=== PATIENT | female | born 1940 | race Two or more races ===

== ENCOUNTER 2017-11-26 12:57 | Emergency (ER) | payer OTHER ==
[~2017-11-26] VITALS: Ht 149.9 cm; Wt 56.7 kg
[~2017-11-26 12:57] MED LIST: CLONAZEPAM1 MG PO; CRESTOR10 MG PO; FOLIC ACID1 MG PO; GABAPENTIN100 MG PO; JANUVIA25 MG PO; LOSARTAN-HCTZ1 EACH PO; METFORMIN HCL500 M2 PO; SYNTHROID50 MCG PO
[2017-11-26] MEDS ORDERED: GLIMEPIRIDE4 MG (13:08)
[2017-11-26] MEDS ORDERED: GLIMEPIRIDE2 MG (13:22)
== END 2017-11-26 20:13 | disposition home or self-care (01) ==
LOC: ER 12:57 → CPU-OBS 13:32 → ER 20:13
DX: R07.89 Other chest pain (principal)

== ENCOUNTER 2018-10-19 12:34 | Outpatient (CLI) | payer OTHER ==
[~2018-10-19 12:34] MED LIST changes: +GLIMEPIRIDE2 MG; +GLIMEPIRIDE4 MG
== END 2018-10-19 14:01 | disposition home or self-care (01) ==
LOC: RAD 12:34
DX: J44.1 Chronic obstructive pulmonary disease with (acute) exacerbation (principal)

== ENCOUNTER → 2019-04-12 | Outpatient (CLI) | payer OTHER | END | disposition home or self-care (01) | LOC: MAMO-SONO 09:48 | DX: Z12.39 Encounter for other screening for malignant neoplasm of breast (principal); N64.4 Mastodynia; Z12.31 Encounter for screening mammogram for malignant neoplasm of breast ==

== ENCOUNTER 2020-04-29 09:22 | Outpatient (CLI) | payer OTHER | END 2020-04-29 09:28 | disposition home or self-care (01) | LOC: LAB 09:22 | PROVIDERS: ATTEND Internal Medicine Cardiovascular Disease | DX: E03.8 Other specified hypothyroidism (principal); D64.89 Other specified anemias; R10.84 Generalized abdominal pain; E78.49 Other hyperlipidemia; Z13.6 Encounter for screening for cardiovascular disorders; I12.9 Hypertensive chronic kidney disease with stage 1 through stage 4 chronic kidney disease, or unspecified chronic kidney disease; E11.65 Type 2 diabetes mellitus with hyperglycemia; C73 Malignant neoplasm of thyroid gland ==

== ENCOUNTER 2020-06-05 09:04 | Outpatient (CLI) | payer OTHER | END 2020-06-05 09:15 | disposition home or self-care (01) | LOC: RAD 09:04 → MAMO-SONO 09:15 → RAD 09:15 | PROVIDERS: ATTEND Obstetrics & Gynecology | DX: M48.02 Spinal stenosis, cervical region (principal); Z12.31 Encounter for screening mammogram for malignant neoplasm of breast; N60.11 Diffuse cystic mastopathy of right breast; N60.12 Diffuse cystic mastopathy of left breast ==

== ENCOUNTER 2021-02-05 09:57 | Outpatient (CLI) | payer OTHER | END 2021-02-05 10:07 | disposition home or self-care (01) | LOC: SONOGRAMA 09:57 → MAMO-SONO 10:15 | PROVIDERS: ATTEND Specialist/Technologist, Other Nephrology | DX: R10.84 Generalized abdominal pain (principal); R31.29 Other microscopic hematuria ==

== ENCOUNTER 2021-06-28 19:30 | Emergency (ER) | payer OTHER ==
[~2021-06-28] VITALS: Ht 149.9 cm; Wt 57.2 kg
[2021-06-28] MEDS ORDERED: MINOCYCLINE HC100 M1 (19:59)
== END 2021-06-28 21:42 | disposition home or self-care (01) ==
LOC: ER 19:30
DX: R60.0 Localized edema (principal); T78.40XA Allergy, unspecified, initial encounter; X58.XXXA Exposure to other specified factors, initial encounter

== ENCOUNTER 2022-07-29 07:16 | Outpatient (CLI) | payer OTHER ==
[~2022-07-29 07:16] MED LIST changes: +MINOCYCLINE HC100 M1
== END 2022-07-29 15:29 | disposition home or self-care (01) ==
LOC: SONOGRAMA 07:16
PROVIDERS: ATTEND Obstetrics & Gynecology
DX: R10.2 Pelvic and perineal pain (principal)

== ENCOUNTER → 2022-07-29 07:19 | Outpatient (CLI) | payer OTHER | END | disposition home or self-care (01) | LOC: LAB 07:19 | PROVIDERS: ATTEND Obstetrics & Gynecology | DX: N30.00 Acute cystitis without hematuria (principal) ==

== ENCOUNTER 2023-03-07 10:20 | Outpatient (CLI) | payer OTHER | END 2023-03-07 10:31 | disposition home or self-care (01) | LOC: SONOGRAMA 10:20 | PROVIDERS: ATTEND Internal Medicine Endocrinology, Diabetes & Metabolism | DX: E04.8 Other specified nontoxic goiter (principal) ==

== ENCOUNTER → 2023-04-28 08:59 | Outpatient (CLI) | payer OTHER ==
[2023-04-28 10:13] LABS: HEMATOCRIT 32.4 % (36.0-45.00); HEMOGLOBIN 10.6 g/dL (12.0-15.00); MEAN CELL VOLUME 95.6 fL (80.00-100.00); MEAN CORPUSCULAR HEMOGLOBIN 31.2 pg (27.00-32.0); MEAN CORPUSCULAR HGB CONC 32.7 g/dl (32.0-36.0); PLATELET COUNT 322 K/uL (150-450); RED BLOOD COUNT 3.39 M/uL (4.00-6.00); RED CELL DISTRIBUTION WIDTH 13.3 % (11.5-14.5)
[2023-04-28 10:56] LABS: BILIRUBIN TOTAL 0.44 mg/dL (0.3-1.2); CREATININE SERUM 1.87 mg/dL (0.55-1.02); GFR 25.91; GLOBULINA 3.9 G/DL (2.4-3.5); POTASSIUM 4.35 mEq/L (3.5-5.1); TOTAL PROTEIN 7.9 gm/dL (6.4-8.2); TSH 3.27 uIU/mL (0.358-3.74)
[2023-04-28 11:00] LABS: PH,URINE 5.5 (5.0-8.0); URINE APPEARANCE Clear; URINE BILIRRUBIN Negative (NEGATIVE); URINE BLOOD Negative; URINE COLOR Yellow; URINE LEUKOCYTE Negative; URINE NITRATE Negative; URINE PROTEIN Negative (NEGATIVE); URINE UROBILINOGEN 0.2 E.U./dl
[2023-04-28 11:02] LABS: URINE BACTERIA 28.9 uL (0.0-1933); URINE EPITHELIAL CELLS 3.9 uL (0.0-38.8)
[2023-04-28 11:04] LABS: INR 1.07; PARTIAL THROMBOPLASTIN TIME 26.7 SECONDS (22.0-34.0); PROTHROMBIN TIME 11.2 SECONDS (9.0-11.5)
[2023-04-28 11:35] LABS: URINE GLUCOSE >=1000 MG/DL (NEGATIVE); URINE RBC 1.4 uL (0.0-20.8)
== END | disposition home or self-care (01) ==
LOC: LAB 08:59
PROVIDERS: ATTEND Colon & Rectal Surgery
DX: N39.0 Urinary tract infection, site not specified (principal); K62.5 Hemorrhage of anus and rectum; D59.8 Other acquired hemolytic anemias; Z11.59 Encounter for screening for other viral diseases; Z20.828 Contact with and (suspected) exposure to other viral communicable diseases; D68.9 Coagulation defect, unspecified; R05.1 Acute cough; R50.9 Fever, unspecified; R15.9 Full incontinence of feces

== ENCOUNTER 2023-05-09 05:30 | Day surgery (SDC) | payer OTHER ==
[~2023-05-09] VITALS: Ht 149.9 cm; Wt 49.9 kg
[~2023-05-09 05:30] MED LIST changes: +ADULT LOW DOSE81 M1 PO; +ALPRAZOLAM XR1 MG PO; +DAPAGLIFLOZIN PO; +FAMOTI PO; +FENOF PO; +OMEGA 3 1,0001 EACH PO; +PROBIOTIC1 EAC2 PO; +VITAMIN C60 MG PO; +VITAMIN D PO; +XARELT PO
== END 2023-05-09 13:20 | disposition home or self-care (01) ==
LOC: CIR.AMB 05:30
PROVIDERS: ATTEND Colon & Rectal Surgery
DX: R15.9 Full incontinence of feces (principal); R32 Unspecified urinary incontinence; Z20.822 Contact with and (suspected) exposure to COVID-19; I10 Essential (primary) hypertension; E78.5 Hyperlipidemia, unspecified
CPT/HCPCS: 64581; 95971; C1778

== ENCOUNTER 2023-05-23 10:20 | Day surgery (SDC) | payer OTHER | END 2023-05-23 16:30 | disposition home or self-care (01) | LOC: CIR.AMB 10:20 | PROVIDERS: ATTEND Colon & Rectal Surgery | DX: R15.9 Full incontinence of feces (principal); R32 Unspecified urinary incontinence; E78.5 Hyperlipidemia, unspecified; I10 Essential (primary) hypertension; Z20.822 Contact with and (suspected) exposure to COVID-19 | CPT/HCPCS: 64590; 95971; C1767 ==

== ENCOUNTER 2023-09-13 09:24 | Outpatient (CLI) | payer OTHER ==
[2023-09-13 10:31] LABS: HEMATOCRIT 29.9 % (36.0-45.00); HEMOGLOBIN 10.3 g/dL (12.0-15.00); MEAN CELL VOLUME 94.5 fL (80.00-100.00); MEAN CORPUSCULAR HEMOGLOBIN 32.6 pg (27.00-32.0); MEAN CORPUSCULAR HGB CONC 34.5 g/dl (32.0-36.0); PLATELET COUNT 368 K/uL (150-450); RED BLOOD COUNT 3.17 M/uL (4.00-6.00); RED CELL DISTRIBUTION WIDTH 14.5 % (11.5-14.5)
[2023-09-13 10:37] LABS: URINE APPEARANCE Clear; URINE BILIRRUBIN Negative (NEGATIVE); URINE BLOOD Negative; URINE COLOR Yellow; URINE GLUCOSE Negative (NEGATIVE); URINE LEUKOCYTE Negative; URINE NITRATE Negative; URINE PROTEIN Negative (NEGATIVE); URINE UROBILINOGEN 0.2 E.U./dl
[2023-09-13 10:38] LABS: URINE BACTERIA 8.8 uL (0.0-1933)
[2023-09-13 10:50] LABS: URINE EPITHELIAL CELLS 1.2 uL (0.0-38.8); URINE RBC 0.4 uL (0.0-20.8); URINE WBC 0.7 uL (0.0-23.2)
[2023-09-13 11:31] LABS: ALBUMIN 4.1 gm/dL (3.4-5.0); BILIRUBIN TOTAL 0.38 mg/dL (0.3-1.2); CALCIUM 9.9 mg/dL (8.5-10.1); CREATININE SERUM 1.4 mg/dL (0.55-1.02); GFR 36.18; GLOBULINA 3.5 G/DL (2.4-3.5); POTASSIUM 4.01 mEq/L (3.5-5.1); T4 FREE 0.98 NG/ML (0.76-1.46); TOTAL PROTEIN 7.6 gm/dL (6.4-8.2); TSH 4.75 uIU/mL (0.358-3.74)
== END 2023-09-13 09:40 | disposition home or self-care (01) ==
LOC: LAB 09:24
PROVIDERS: ATTEND Colon & Rectal Surgery
DX: I12.9 Hypertensive chronic kidney disease with stage 1 through stage 4 chronic kidney disease, or unspecified chronic kidney disease (principal); E78.2 Mixed hyperlipidemia; E11.22 Type 2 diabetes mellitus with diabetic chronic kidney disease; N18.32 Chronic kidney disease, stage 3b; E03.8 Other specified hypothyroidism; F17.200 Nicotine dependence, unspecified, uncomplicated; E11.65 Type 2 diabetes mellitus with hyperglycemia; I10 Essential (primary) hypertension; R94.6 Abnormal results of thyroid function studies

== ENCOUNTER 2024-09-18 09:12 | Outpatient (CLI) | payer OTHER ==
[2024-09-18 10:50] LABS: HEMATOCRIT 29.9 % (36.0-45.00); HEMOGLOBIN 10.3 g/dL (12.0-15.00); MEAN CELL VOLUME 91.9 fL (80.00-100.00); MEAN CORPUSCULAR HEMOGLOBIN 31.7 pg (27.00-32.0); MEAN CORPUSCULAR HGB CONC 34.5 g/dl (32.0-36.0); PLATELET COUNT 296 K/uL (150-450); RED BLOOD COUNT 3.25 M/uL (4.00-6.00); RED CELL DISTRIBUTION WIDTH 13.5 % (11.5-14.5)
== END 2024-09-18 09:15 | disposition home or self-care (01) ==
LOC: LAB 09:12
PROVIDERS: ATTEND Colon & Rectal Surgery
DX: D64.9 Anemia, unspecified (principal); Z11.4 Encounter for screening for human immunodeficiency virus [HIV]; B17.9 Acute viral hepatitis, unspecified

== ENCOUNTER → 2024-10-09 09:55 | Outpatient (CLI) | payer OTHER ==
[2024-10-09 11:05] LABS: PH,URINE 5.5 (5.0-8.0); URINE APPEARANCE Clear; URINE BILIRRUBIN Negative (NEGATIVE); URINE BLOOD Negative; URINE COLOR Yellow; URINE GLUCOSE Negative (NEGATIVE); URINE KETONE Negative (NEGATIVE); URINE LEUKOCYTE Small; URINE NITRATE Negative; URINE PROTEIN Negative (NEGATIVE); URINE UROBILINOGEN 0.2 E.U./dl
[2024-10-09 11:05] LABS: HEMATOCRIT 33.1 % (36.0-45.00); HEMOGLOBIN 11.1 g/dL (12.0-15.00); MEAN CELL VOLUME 92.3 fL (80.00-100.00); MEAN CORPUSCULAR HEMOGLOBIN 30.8 pg (27.00-32.0); MEAN CORPUSCULAR HGB CONC 33.4 g/dl (32.0-36.0); PLATELET COUNT 351 K/uL (150-450); RED BLOOD COUNT 3.59 M/uL (4.00-6.00); RED CELL DISTRIBUTION WIDTH 13.3 % (11.5-14.5)
[2024-10-09 11:09] LABS: URINE BACTERIA 36.6 uL (0.0-1933); URINE EPITHELIAL CELLS 10.1 uL (0.0-38.8); URINE WBC 8.5 uL (0.0-23.2)
[2024-10-09 11:16] LABS: URINE CAST 0.14 uL (0.0-1.40); URINE RBC 0.4 uL (0.0-20.8)
[2024-10-09 15:11] LABS: ALBUMIN 3.9 gm/dL (3.4-5.0); BILIRUBIN TOTAL 0.4 mg/dL (0.3-1.2); CALCIUM 9.6 mg/dL (8.5-10.1); CHOL HDL RATIO 2.3 (0-5.0); CREATININE SERUM 1.3 mg/dL (0.55-1.02); FERRITIN 32.6 NG/ML (8-252); FREE TRIODOTIRONINE 2.63 pg/ml (2.18-3.98); GFR 39.31; GLOBULINA 3.7 G/DL (2.4-3.5); POTASSIUM 4.48 mEq/L (3.5-5.1); TOTAL PROTEIN 7.6 gm/dL (6.4-8.2)
[2024-10-09 15:14] LABS: TSH 0.136 uIU/mL (0.358-3.74)
[2024-10-09 15:15] LABS: T4 FREE 1.63 NG/ML (0.76-1.46)
[2024-10-11 11:22] LABS: FOLIC ACID > 20.00 ng/ml (4.78-20); VITAMIN D3 25 HYDROXY 84.38 ng/ml (30-120)
== END | disposition home or self-care (01) ==
LOC: LAB 09:55
PROVIDERS: ATTEND Internal Medicine Endocrinology, Diabetes & Metabolism
DX: E11.65 Type 2 diabetes mellitus with hyperglycemia (principal); E03.9 Hypothyroidism, unspecified; D64.9 Anemia, unspecified; E53.8 Deficiency of other specified B group vitamins; E78.2 Mixed hyperlipidemia; E55.9 Vitamin D deficiency, unspecified; N39.0 Urinary tract infection, site not specified

== ENCOUNTER 2025-01-31 07:36 | Outpatient (CLI) | payer OTHER ==
[2025-01-31 08:49] LABS: BASO % 0.7 % (0.1-1.2); EOS # 0.23 (0.04-0.54); EOS % 2.8 % (0.7-7.0); LYMPH # 2.70 (1.18-3.74); LYMPH % 33.0 % (19.3-53.1); MEAN PLATELET VOLUME 10.40 fl (9.4-12.4); MONO # 0.87 (0.24-0.82); MONO % 10.6 % (4.7-12.5); NEUT # 4.28 (1.56-6.13); NEUT % 52.4 % (34.0-71.1); RED CELL DISTRIBUTION WIDTH 13.6 % (11.6-14.4)
[2025-01-31 08:52] LABS: URINE APPEARANCE Clear; URINE BILIRRUBIN Negative (NEGATIVE); URINE BLOOD Negative; URINE COLOR Yellow; URINE GLUCOSE Negative (NEGATIVE); URINE KETONE Negative (NEGATIVE); URINE LEUKOCYTE Negative; URINE NITRATE Negative; URINE PROTEIN Negative (NEGATIVE); URINE UROBILINOGEN 0.2 E.U./dl
[2025-01-31 08:57] LABS: URINE BACTERIA 13.2 uL (0.0-1933); URINE CAST 2.78 uL (0.0-1.40); URINE EPITHELIAL CELLS 9.9 uL (0.0-38.8); URINE WBC 5.5 uL (0.0-23.2)
[2025-01-31 09:02] LABS: URINE RBC 0.8 uL (0.0-20.8)
[2025-01-31 09:53] LABS: ALT/SGPT 34.0 U/L (12-78); AST/SGOT 28.0 U/L (15-37); BILIRUBIN TOTAL 0.39 mg/dL (0.3-1.2); BUN CREA RATIO 20.0 (7.0-25.0); CHOL HDL RATIO 2.4 (0-5.0); CREATININE SERUM 1.53 mg/dL (0.55-1.02); FREE TRIODOTIRONINE 1.81 pg/ml (2.18-3.98); GFR 32.49; GLOBULINA 3.5 G/DL (2.4-3.5); GLUCOSE FASTING 125.0 mg/dL (65-100); HDL 53.0 mg/dl (40-60); LDL 53.0 mg/dl (0-130); OSMOLALITY SERUM 289.0 MOSM/KG (275-295); T4 FREE 1.14 NG/ML (0.76-1.46); TSH 3.65 uIU/mL (0.358-3.74); VLDL 19.0 (0-39)
== END 2025-01-31 07:47 | disposition home or self-care (01) ==
LOC: LAB 07:36
DX: N18.32 Chronic kidney disease, stage 3b (principal); I12.9 Hypertensive chronic kidney disease with stage 1 through stage 4 chronic kidney disease, or unspecified chronic kidney disease; E11.22 Type 2 diabetes mellitus with diabetic chronic kidney disease; E11.65 Type 2 diabetes mellitus with hyperglycemia; E03.9 Hypothyroidism, unspecified; D64.9 Anemia, unspecified; E78.1 Pure hyperglyceridemia; R32 Unspecified urinary incontinence; M81.0 Age-related osteoporosis without current pathological fracture; D50.9 Iron deficiency anemia, unspecified; Z87.891 Personal history of nicotine dependence; R10.10 Upper abdominal pain, unspecified; G47.33 Obstructive sleep apnea (adult) (pediatric)

== ENCOUNTER 2025-01-31 08:22 | Outpatient (CLI) | payer OTHER | END 2025-01-31 08:27 | disposition home or self-care (01) | LOC: SONOGRAMA 08:22 | DX: N18.32 Chronic kidney disease, stage 3b (principal) ==

== ENCOUNTER 2025-02-14 07:28 | Outpatient (CLI) | payer OTHER | END 2025-02-14 07:31 | disposition home or self-care (01) | LOC: TOM 07:28 | PROVIDERS: ATTEND Internal Medicine | DX: Z87.891 Personal history of nicotine dependence (principal); R10.10 Upper abdominal pain, unspecified ==

== ENCOUNTER → 2025-06-17 | Emergency (ER) | payer OTHER ==
[~2025-06-17] VITALS: Ht 144.8 cm; Wt 49.0 kg
[~2025-06-17] MED LIST changes: +ADULT LOW DOSE81 M1; +ARICEPT5 MG PO; +CILOSTAZOL50 MG PO; +EZALLOR SPRINKL10 MG PO; +FENOFIBRATE50 MG; +FEOSOL325 MG PO; +KETOROLAC TROMETHAMINE 60 MG VIAL IM ONE; +LOSARTAN POTASS50 MG PO; +NORFLEX100MG PO; +PEPCID AC10 MG; +TRADJENTA5 MG PO
[2025-06-17 18:41] LABS: BASO % 0.8 % (0.1-1.2); EOS # 0.31 (0.04-0.54); EOS % 4.9 % (0.7-7.0); LYMPH # 2.33 (1.18-3.74); LYMPH % 36.6 % (19.3-53.1); MEAN PLATELET VOLUME 9.60 fl (9.4-12.4); MONO # 0.67 (0.24-0.82); MONO % 10.5 % (4.7-12.5); NEUT # 3.00 (1.56-6.13); NEUT % 47.0 % (34.0-71.1); RED CELL DISTRIBUTION WIDTH 12.8 % (11.6-14.4)
[2025-06-17 19:08] LABS: URINE APPEARANCE Clear; URINE BILIRRUBIN Negative (NEGATIVE); URINE BLOOD Negative; URINE COLOR Yellow; URINE GLUCOSE Negative (NEGATIVE); URINE KETONE Negative (NEGATIVE); URINE LEUKOCYTE Negative; URINE NITRATE Negative; URINE PROTEIN Negative (NEGATIVE); URINE UROBILINOGEN 0.2 E.U./dl
[2025-06-17 19:12] LABS: URINE BACTERIA 21.7 uL (0.0-1933); URINE WBC 1.9 uL (0.0-23.2)
[2025-06-17 19:12] LABS: ALT/SGPT 41.0 U/L (12-78); AST/SGOT 42.0 U/L (15-37); BILIRUBIN TOTAL 0.33 mg/dL (0.3-1.2); BUN CREA RATIO 15.0 (7.0-25.0); CREATININE SERUM 1.25 mg/dL (0.55-1.02); GFR 41.03; GLOBULINA 3.8 G/DL (2.4-3.5); GLUCOSE FASTING 154.0 mg/dL (65-100); OSMOLALITY SERUM 288.0 MOSM/KG (275-295)
[2025-06-17 19:22] LABS: URINE CAST 0.00 uL (0.0-1.40); URINE EPITHELIAL CELLS 1.3 uL (0.0-38.8); URINE RBC 1.4 uL (0.0-20.8)
== END | disposition home or self-care (01) ==
LOC: ER 17:11
PROVIDERS: General Practice
DX: R10.A1 Flank pain, right side (principal); Z98.890 Other specified postprocedural states; I10 Essential (primary) hypertension; E11.9 Type 2 diabetes mellitus without complications; Z79.84 Long term (current) use of oral hypoglycemic drugs; Z96.82 Presence of neurostimulator
CPT/HCPCS: 36415; 74176; 96372; 99284; J1885